=== PATIENT | female | born 1995 | race Caucasian/White ===

== ENCOUNTER → 2019-06-29 13:58 | Outpatient (CLI) | payer MEDICAID, SELFPAY ==
--- NOTE | 2019-06-29 14:01 | US_ITS ---
STUDY: FIRST TRIMESTER OBSTETRICAL ULTRASOUND REASON FOR EXAM: Female, 23 years old viability, dating LMP: 04/03/2019 TECHNIQUE: Transvaginal TECHNICAL QUALITY: Adequate. PRIOR ULTRASOUND: None. FINDINGS: There is visualization of a single gestational sac in a normal intrauterine position. The mean sac diameter (MSD) measures 5.7 cm,.. The gestational sac shape is within normal limits. There is a visualized yolk sac. The yolk sac measures 7.5 mm.. There is visualization of the placenta. Appears posterior There is visualization of a live embryo. The crown-rump length (CRL) measures 4.9 cm, indicating an estimated gestational age (EGA) of 12 weeks, 3 days. There is demonstrated cardiac activity with a heart rate of 01/08/2020 bpm. Early visualization of the extremities are partially visualized. The estimated gestation age (EGA) by LMP is 11 weeks, 3 days. The estimated date of delivery (SARAH) by LMP is 01/15/2020. The estimated gestation age (EGA) by US is 11 weeks, 3 days. The estimated date of delivery (SARAH) by US is 01/15/2020. The uterus measures 12.2 x 9.1 x 7.1 cm. There is no demonstrated uterine fibroid. The cervix is closed. Cervix measures 4 cm. There is a focal hypoechoic fluid collection adjacent to the gestational sac measuring 1.8 x 0.7 x 1.1 cm. The right ovary measures 3.0 x 3.2 x 2.6 cm. There is a right ovarian cyst measuring 1.8 x 2.1 x 1.8 cm. There is no visualized right adnexal mass or complex lesion. The left ovary not visualized. There is no fluid in the cul de sac. US/Init OB < 14Wks US IMPRESSION: Single live intrauterine 11 weeks 3 days by ultrasound. Estimated delivery date 01/15/2020. There is a small subchorionic hemorrhage. Early anatomic detail is visualized on this study but not measured. This is not an anatomic survey. Recommend short-term interval follow-up study for anatomic survey and 1-3 weeks or as clinically appropriate. Electronically Signed: Inge Bragg MD at 22:59 EDT Tel , Service support ,
== END ==
PROVIDERS: Referring Provider Obstetrics & Gynecology; Visit Provider Obstetrics & Gynecology
DX: O36.80X0 Pregnancy with inconclusive fetal viability, not applicable or unspecified (principal); Z3A.11 11 weeks gestation of pregnancy
CPT/HCPCS: 76801

== ENCOUNTER → 2019-07-06 14:20 | Outpatient (CLI) | payer MEDICAID, SELFPAY ==
[2019-07-06 14:17] VITALS: BMI 36.0
[2019-07-06 15:03] LABS: Absolute Lymphocyte Count 2.41 X10^3/uL (0.83-4.51); Absolute Neutrophil Count 6.5 X10^3/uL (2.0-7.7); Basophil# 0.02 X10^3/uL; Basophil% 0.2 % (0-1); Eosinophil# 0.15 X10^3/uL; Eosinophils% 1.6 % (0-5); Hematocrit 35.6 % (37-47); Hemoglobin 12.3 g/dL (12.0-15.0); Lymphocyte # 2.41 X10^3/ul (4.0); Lymphocyte % 25.1 % (19-41); Mean Corp Hgb Conc 34.6 g/dL (32-36); Mean Corpuscular Hgb 29.4 pg (27.0-32.0); Monocyte# 0.54 X10^3/uL; Monocyte% 5.6 % (0-10); NRBC Flagged by Analyzer 0 % (0-5); Neutrophil # 6.47 X10^3/uL (2.7-7.7); Neutrophil % 67.2 % (47-70); Platelet Count 234 K/mm3 (150-450); RBC Distribution Width CV 11.7 % (11.6-14.6); RBC Distribution Width SD 35.8 fl (35.1-43.9); Red Blood Count 4.19 M/mm3 (4.2-5.4); White Blood Count 9.6 K/mm3 (4.4-11.0)
[2019-07-06 15:31] LABS: Glucose Challenge Gest 1H 50g 90 mg/dL (70-140)
[2019-07-06 16:24] LABS: HIV - WCH Non-Reactive (Nonreactive); Rubella IgG 128.5 IU/mL
[2019-07-06 18:04] LABS: Chlamydia Trachomatis by PCR Negative (Negative); Neisserai gonorrhoeae by PCR Negative (Negative); Probe Check PASS; Sample Adequacy Control PASS; Specimen Processing Control PASS
[2019-07-09 12:18] LABS: HPV Reflexed? NOT INDICATED
[2019-07-10 02:41] LABS: Rapid Plasmin Reagin (RPR) NONREACTIVE (NONREACTIVE)
== END ==
PROVIDERS: Nurse Practitioner Women's Health; Referring Provider Obstetrics & Gynecology; Visit Provider Obstetrics & Gynecology
DX: Z34.90 Encounter for supervision of normal pregnancy, unspecified, unspecified trimester (principal)
CPT/HCPCS: 36415; 82950; 85025; 86592; 86703; 86762; 86850; 86900; 86901; 87077; 87086; 87088; 87186; 87491; 87591; 88175; G0145

== ENCOUNTER → 2019-09-01 12:43 | Outpatient (CLI) | payer MEDICAID, SELFPAY ==
[2019-08-03 14:19] VITALS: BMI 36.0
== END ==
PROVIDERS: Referring Provider Nurse Practitioner Women's Health; Visit Provider Nurse Practitioner Women's Health
DX: Z34.80 Encounter for supervision of other normal pregnancy, unspecified trimester (principal)
CPT/HCPCS: 87077; 87086; 87088; 87186

== ENCOUNTER → 2019-10-02 11:33 | Outpatient (CLI) | payer MEDICAID, SELFPAY ==
[2019-10-02 10:53] VITALS: BMI 36.0
[2019-10-02 12:31] LABS: Absolute Lymphocyte Count 1.73 X10^3/uL (0.83-4.51); Absolute Neutrophil Count 7.1 X10^3/uL (2.0-7.7); Basophil# 0.02 X10^3/uL; Basophil% 0.2 % (0-1); Eosinophil# 0.14 X10^3/uL; Eosinophils% 1.5 % (0-5); Hemoglobin 11.5 g/dL (12.0-15.0); Lymphocyte # 1.73 X10^3/ul (4.0); Lymphocyte % 18.4 % (19-41); Mean Corp Hgb Conc 33.8 g/dL (32-36); Mean Corpuscular Hgb 29.5 pg (27.0-32.0); Mean Corpuscular Volume 87.2 fL (81-99); Mean Platelet Vol. 9.8 fl (6.2-12.0); Monocyte# 0.41 X10^3/uL; Monocyte% 4.4 % (0-10); NRBC Flagged by Analyzer 0 % (0-5); Neutrophil # 7.05 X10^3/uL (2.7-7.7); Neutrophil % 74.9 % (47-70); Platelet Count 267 K/mm3 (150-450); RBC Distribution Width CV 13.1 % (11.6-14.6); RBC Distribution Width SD 40.6 fl (35.1-43.9); White Blood Count 9.4 K/mm3 (4.4-11.0)
[2019-10-02 12:52] LABS: Glucose Challenge Gest 1H 50g 85 mg/dL (70-140)
[2019-10-02 13:17] LABS: Hepatitis B Surface Antigen Non-Reactive (Nonreactive)
== END ==
PROVIDERS: Referring Provider Obstetrics & Gynecology; Visit Provider Obstetrics & Gynecology
DX: O09.299 Supervision of pregnancy with other poor reproductive or obstetric history, unspecified trimester (principal); O26.899 Other specified pregnancy related conditions, unspecified trimester; O23.40 Unspecified infection of urinary tract in pregnancy, unspecified trimester; B95.1 Streptococcus, group B, as the cause of diseases classified elsewhere; Z67.91 Unspecified blood type, Rh negative; Z3A.26 26 weeks gestation of pregnancy
CPT/HCPCS: 36415; 82950; 85025; 87340

== ENCOUNTER → 2019-10-15 16:29 | Outpatient (CLI) | payer MEDICAID, SELFPAY ==
[2019-10-15 16:06] VITALS: BMI 36.0
== END ==
PROVIDERS: Referring Provider Obstetrics & Gynecology; Visit Provider Obstetrics & Gynecology
DX: O26.899 Other specified pregnancy related conditions, unspecified trimester (principal); Z67.91 Unspecified blood type, Rh negative; Z3A.00 Weeks of gestation of pregnancy not specified
CPT/HCPCS: 36415; 86850; 86900; 86901

== ENCOUNTER 2019-12-08 15:45 | Outpatient (CLI) | payer MEDICAID, SELFPAY ==
[2019-11-30 10:55] VITALS: BMI 36.0
[2019-12-08 15:58] VITALS: BMI 36.9
[2019-12-08 16:16] VITALS: BP 90/53; PULSE 66; TEMP 97.9
[2019-12-08 16:26] VITALS: BP 96/57; PULSE 65
[2019-12-08 16:48] LABS: Red Blood Cells-Urine 0 SEEN /hpf (0-5); White Blood Cells 0 SEEN /hpf (0-5)
[2019-12-08 17:00] LABS: Color, Urine Yellow (Yellow); Glucose, Dipstick Normal (Normal); Ketone-Dipstick 50 mg/dl (Negative); Leukocyte Esterase-Dipstick 25 /ul (Negative); Nitrite-Dipstick Negative (Negative); Occult Blood-Urine Negative /ul (Negative); Protein-Dipstick Negative (Negative); Specific Gravity, Urine 1.015 (1.002-1.030); Urine Bilirubin Dipstick Negative (Negative); Urine Clarity Clear (Clear); Urine Urobilinogen 4 mg/dl (Normal)
[2019-12-08] MEDS: Acetaminophen 500 MG Tablet 1000 MG PO (17:08)
[2019-12-08 17:09] LABS: Bacteria 1+ /hpf (None Seen); Mucous, Urine 1+ /hpf (<or=2+); Squamous Epithelial Cells - UA 5-10 SEEN /hpf (5-10)
[2019-12-08 17:39] VITALS: BP 93/54; PULSE 71
--- NOTE | 2019-12-09 14:25 | OB.TRI.PN ---
Progress Notes Date of Service: 12/09/19 Progress Note: fht 140 moderate variability reactive no decels cat I tracing toco no regular ctx- a/p: false labor reactive nst fu as scheudled Laboratory Studies: Laboratory Tests 12/08/19 Range/Units 16:35 Urine Color Yellow (Yellow) Urine Clarity Clear (Clear) Urine pH 7.0 (5.0 - 8.0) Ur Specific [place] 1.015 (1.002-1.030) Urine Protein Negative (Negative) mg/dl Urine Glucose (UA) Normal (Normal) mg/dl Urine Ketones 50 H (Negative) mg/dl Urine Occult Blood Negative (Negative) /ul Urine Nitrite Negative (Negative) Urine Bilirubin Negative (Negative) mg/dL Urine Urobilinogen 4 H (Normal) mg/dl Ur Leukocyte Esterase 25 H (Negative) /ul Urine RBC 0 SEEN (0-5) /hpf Urine WBC 0 SEEN (0-5) /hpf Ur Squamous Epith Cells 5-10 SEEN (5-10) /hpf Urine Bacteria 1+ (None Seen) /hpf Urine Mucus 1+ (<or=2+) /hpf Multi Select Codes - Urinary/Genital Urinary/Genital CPT Codes: 16611-87 non-stress test Interp
== END 2019-12-08 17:45 | disposition home or self-care (01) ==
LOC: WPOUT 15:51 → OBT 15:52
PROVIDERS: Referring Provider Obstetrics & Gynecology; Visit Provider Obstetrics & Gynecology
DX: O47.9 False labor, unspecified (principal); Z3A.00 Weeks of gestation of pregnancy not specified
CPT/HCPCS: 59025; 59050; 81001; 87086; 87088; 99218; G0378

== ENCOUNTER 2020-01-14 06:42 | Inpatient (IN) | payer MEDICAID, SELFPAY ==
[2020-01-11 10:32] VITALS: BMI 36.9
[2020-01-14] VITALS (69 sets, daily range): BP systolic 80–113; BP diastolic 39–69; PULSE 47–96; TEMP 36.2–37.2; O2SAT 91–100; BMI 38.6
--- NOTE | 2020-01-14 00:34 | PCM.HPOB.BLA ---
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 echo normal. (3) GBS (group B streptococcus) UTI complicating Status: Acute Qualifiers: Comment: 07/09 tx amoxil and in labor (4) Status: Acute Qualifiers: Comment: SS-negative and NT. Anatomy US normal. (5) Rh negative state in antepartum period Status: Acute Comment: rhogam 28 wk, pp and with any bleeding (6) Sterilization Status: Acute Comment: title 19 signed 10/15/19 (7) Supervision of other normal Status: Acute Comment: PRR Grav 01/07 SARAH 01/08/20 PC Jacques Vasques Braxton. 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 Lakesha Alvarez MD) Smoking Status: Never smoker alcohol intake: former substance use type: does not use caffeine: Yes what type of physical activity do you participate in: none seatbelt use: always do you feel safe at home: Yes additional social history: [employer] Pregancy History 4 Elective abortions Hx Para 3 Spontaneous abortions Hx # Term Pregnancies Ectopic pregnancies Hx # Pregnancies Multiple births # of living children Past Pregnancies Del. Date Name GA/Weeks Outcome Route Bth Weight Gen Labor Lgth Anesthesia Del Locatn Provider FOB 10/15/11 Layo 41 live - full term 8lbs 9oz epidural [facility] Dr. Apolinar Arguelles 07/21/14 Jacques 39 live - full term 7lbs 6oz Male epidural [facility] Dr. Kael De La Paz 10/04/17 Shekhar 41 live - full term 7lbs 6oz Male epidural [facility] Dr. Apolinar Raymond Delivery Date: 10/15/11 On 07/06/19 @ 13:39 Audrey Valentin No issues during or delivery Delivery Date: 07/21/14 On 07/06/19 @ 13:40 Audrey Valentin No issues during or delivery. 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 Delivery Date: 10/04/17 On 07/06/19 @ 13:42 Audrey Valentin No issues during or delivery. HPI 40 WK OB: Details: LETY THOMAS is a 24 year old at 40 weeks 6 days presents for induction of labor secondary to postdates. She denies any vaginal bleeding or loss of fluid admits good movement. OB Visit SARAH Calculator Estimated Delivery Date Method Current WG Current Estimate 01/08/20 Ultrasound #1 40w 3d Other Estimates 01/08/20 LMP (Certain) 40w 3d Expected Delivery Route/Plan Labor Preferences- labor support person: Derrek pain management options preferred: unsure cut cord/dad catch: yes : yes PP control planned: PPTL discussed possible routes of delivery and associated risks: special requests: Specific Issue/Plans flu vaccine: given tdap vaccine: given rhogam: given LARC form signed: declined movement and labor precautions reviewed. Problem list reviewed and updated with the most current plan of care details and appropriate orders placed. Relevant counseling for the gestational age provided. Continue routine care and follow up unless otherwise noted in visit notes/problem list details Initial Weight: Not Recorded Date EGA Weight BP Urine Prot Glucose FHR FuHt Pres Dilation Effaced St Visit Note 07/06/19 13w 3d 208 lb 4 oz 166 Brief US to confirm live active IUP 08/03/19 17w 3d 206 lb 112/64 Negative Negative 150 .lno vb 09/01/19 21w 4d 216 lb 2 oz 112/72 154 Good FM. No VB, LOF. Will assist to scheduled echo. 10/02/19 26w 0d 216 lb 106/72 145 26 SM- no vb lof good fm no regular ctx SM- no vb lof good fm no regular ctx cbc gct today will get rhogam next visit 10/15/19 27w 6d 215 lb 92/62 Negative Negative 145 28 outpatient; SM inpatient title 19 11/02/19 30w 3d 216 lb 4 oz 111/72 Negative Negative 145 31 SM- no vb lof good fm no regular ctx 11/16/19 32w 3d 224 lb 2 oz 122/66 Negative Negative 140 32 SM- no vb lof good fm no regular ctx 11/30/19 34w 3d 224 lb 100/64 Negative Negative 140 34 SM- no vb lof good fm no regular ctx 12/14/19 36w 3d 227 lb 114/80 140 36 SM- no vb lof good fm no regular ctx 12/23/19 37w 5d 228 lb 4 oz 108/66 Negative Negative 140 37 Cephalic 2.5 50 -3 SM- no vb lof good fm no regular ctx 12/28/19 38w 3d 228 lb 96/70 Negative Negative 140 38 2.5 50 -3 SM- no vb lof good fm no regular ctx 01/04/20 39w 3d 230 lb 4 oz 100/70 Negative Negative 155 39 Cephalic SM- no vb lof good fm no regular ctx 01/11/20 40w 3d 230 lb 102/64 150 40 Cephalic SM- no vb lof good fm o regular ctx Notes Visit Date: 01/11/20 ??No visit notes to display Visit Date: 01/04/20 ??No visit notes to display Visit Date: 12/28/19 ??No visit notes to display Visit Date: 12/23/19 ??No visit notes to display Visit Date: 12/14/19 ??No visit notes to display Visit Date: 11/30/19 ??No visit notes to display Visit Date: 11/16/19 ??No visit notes to display Visit Date: 11/02/19 ??No visit notes to display Visit Date: 10/15/19 ??No visit notes to display Visit Date: 10/02/19 ??No visit notes to display Visit Date: 09/01/19 ??Good FM. No VB, LOF. Will assist to scheduled echo. ??NERI Mcgill on 09/01/19 Visit Date: 08/03/19 ??.lno vb ??Lakesha Alvarez MD on 08/03/19 Visit Date: 07/06/19 ??Brief US to confirm live active IUP ??NERI Mcgill on 07/06/19 ACOG First Trimester First Trimester: Desire for , Alcohol, Tobacco Cessation, Illicit/Recreational Drug/Substance Use, Intimate Partner Violence, Barriers to care, Unstable Housing, Communication Barriers, Environmental/Work Hazards, Anticipated Course of Care, Toxoplasmosis Precations, Use of Any medications, Sexual activity, Exercise, Dental Care, Sauna/Hot tub use, Seat Belt use, Childbirth classes/Hospital facilities, , Travel, Indications for US and Screening for Aneuploidy Second Trimester Second Trimester: Signs and Symptoms of Labor, Selecting a care provider, Reproductive Life Planning, Care Planning, Tobacco Cessation, Depression/Anxiety and Intimate Partner Violence Third Trimester Third Trimester: Pain Management Plans, Labor support person(s), Immediate Larc, Movement Monitoring and Infant Feeding Yes ; discussed Trial of Labor after Counseling or discussed Circumcision preference Diagnostics Diagnostics Diagnostics Blood Type B NEGATIVE 10/15/19 Antibody Screen NEGATIVE 10/15/19 Glucose 1 Hr 50 gm 85 mg/dL (70-140) 10/02/19 Hgb 11.5 g/dL (12.0-15.0) L 10/02/19 Hct 34.0 % (37-47) L 10/02/19 Details: HIV: Urine Culture: Sequential Screen: NIPT Screen: ROS Const Reports system reviewed and no additional complaints, except as docu Card Reports system reviewed and no additional complaints, except as docu Resp Reports system reviewed and no additional complaints, except as docu GI Reports system reviewed and no additional complaints, except as docu, Reports nausea Reports system reviewed and no additional complaints, except as docu Musc Reports system reviewed and no additional complaints, except as docu Exam Const General: cooperative, healthy appearing, comfortable, anxious HENMT Head: normal to inspection Nose: external nose normal Face and sinus: normal facial exam Neck Neck: normal visual inspection, full ROM, no lymphadenopathy Thyroid: thyroid normal Chest Chest palpation & inspection: normal inspection of the chest Resp Effort & Inspection: normal respiratory effort GI Inspection: normal to inspection Palpation: soft, other (gravid uterus) Other: infant vertex and appropriate size for gestational age Other: Cervical Exam: Extrem General: pedal edema Assessment & Plan Problems 1. Sterilization Z30.2 2. Group B Streptococcus urinary tract infection affecting in first trimester O23.41 3. Rh negative state in antepartum period O26.899; Z67.91 4. 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 40 weeks gestation of Z3A.40 6. Supervision of other normal Z34.80 Patient presents IOL, plan management for , pitocin/AROM when able. Pain management: Plans epidural. GBS negative. Management of any complications: None I have reviewed the [facility] and made any clinically relevant updates. 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
[2020-01-14 08:01] LABS: Absolute Neutrophil Count 5.8 X10^3/uL (2.0-7.7); Basophil# 0.02 X10^3/uL; Basophil% 0.2 % (0-1); Eosinophil# 0.06 X10^3/uL; Eosinophils% 0.7 % (0-5); Hematocrit 32.8 % (37-47); Hemoglobin 10.7 g/dL (12.0-15.0); Lymphocyte % 22.8 % (19-41); Mean Corp Hgb Conc 32.6 g/dL (32-36); Mean Corpuscular Hgb 27.4 pg (27.0-32.0); Mean Corpuscular Volume 84.1 fL (81-99); Mean Platelet Vol. 11.2 fl (6.2-12.0); NRBC Flagged by Analyzer 0 % (0-5); Neutrophil # 5.82 X10^3/uL (2.7-7.7); Neutrophil % 69.7 % (47-70); Platelet Count 213 K/mm3 (150-450); RBC Distribution Width CV 13.5 % (11.6-14.6); RBC Distribution Width SD 40.6 fl (35.1-43.9); White Blood Count 8.4 K/mm3 (4.4-11.0)
[2020-01-14] MEDS: Lactated Ringers 1,000 ML 50 ML IV (08:20)
[2020-01-14] MEDS: Oxytocin 30 units/NS 500 ml 30 UNITS/500 ML IV.SOLN IV (08:30)
[2020-01-14] MEDS: Lactated Ringers 500 ML 999 ML IV ×3 (12:48→14:36)
[2020-01-14] MEDS: fentaNYL-bupivacaine (epidural) 100 ML BAG EPIDURAL (14:13)
[2020-01-14] MEDS: ePHEDrine Sulfate 50 MG/ML Ampul 10 MG IM (14:15)
--- NOTE | 2020-01-14 17:18 | OP.PCM_ITS ---
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 echo normal. (3) GBS (group B streptococcus) UTI complicating Status: Acute Qualifiers: Comment: 07/09 tx amoxil and in labor (4) Status: Acute Qualifiers: Comment: SS-negative and NT. Anatomy US normal. (5) Rh negative state in antepartum period Status: Acute Comment: rhogam 28 wk, pp and with any bleeding (6) Sterilization Status: Acute Comment: title 19 signed 10/15/19 (7) Supervision of other normal Status: Acute Comment: PRR Grav 01/07 SARAH 01/08/20 Jacques Rosa Braxton. Spouse Derrek Vaginal Delivery Maternal Presentation: Medically Indicated Induction iol 40w6d Method of Induction: Pitocin Amniotic Membrane Rupture Type: Artificial Amniotic Fluid Description: Clear Final SARAH: 01/08/20 Gestational age: 41 Weeks and 1 Days Date of Procedure: 01/14/20 Pre-Operative Diagnosis: iol Post-Operative Diagnosis: same Surgery/ Procedure Performed: Spontaneous Vaginal Delivery Type of Anesthesia: Epidural Description of Procedure: Patient began pushing and delivered the head in the BRIANNA presentation. The head was delivered atraumatically and a tight nuchal cord was noted and after should delivery was cut on the perineum without complications. The posterior shoulders delivered without complication followed by the rest of the infant and the was placed on the maternal abdomen. Delayed cord clamping was employed for approximately 60 seconds. Cord was clamped and cut and gentle traction was applied to the cord and the placenta delivered spontaneously immediately following it was noted to be intact with three-vessel cord. The perineum and vagina were inspected and noted to have no laceration. EBL was 100 cc. Patient and tolerated delivery well. Presentation: BRIANNA Placental Delivery Description: Spontaneous Placenta Disposition: [facility] Cord Vessel Description: 3 Vessels Estimated Blood Loss: 100 A gender: Female Episiotomy Description: None Laceration: None Medications given after delivery: IV Pitocin Complications: None Multi Select Codes - Urinary/Genital Urinary/Genital CPT Codes: 41473 Vaginal Delivery+ PP Care([facility])
[2020-01-14] MEDS: Oxytocin 30 units/NS 500 ml 30 UNITS/500 ML IV.SOLN 334 UNITS IV (17:39)
[2020-01-14] MEDS: 0.9% Saline Lock 10 ML Syringe IV (20:13)
[2020-01-15] VITALS (14 sets, daily range): BP systolic 77–107; BP diastolic 35–70; PULSE 45–72; RESP 14–20; TEMP 36–36.9; O2SAT 93–97
[2020-01-15] MEDS: Naproxen 250 MG Tablet 500 MG PO ×2 (02:50→11:04)
--- NOTE | 2020-01-15 07:58 | PN.OBGYN_ITS ---
Subjective: Doing well, no complaints.Pain controlled. Denies CP, SOB, N,V. Ambulating well, tolerating po. Lochia moderate, going well. - Physical Exam Vitals/I&O's: Vital Signs Temp Pulse Resp BP Pulse Ox 98.5 F 58 L 16 101/55 L 99 01/15/20 04:13 01/15/20 04:14 01/15/20 04:13 01/15/20 04:14 01/14/20 19:48 Oxygen Delivery Method Room Air Weight: 232 lb Body Mass Index (BMI) 38.6 Intake and Output for Last 24 Hours 01/13/20 01/14/20 01/15/20 23:59 23:59 23:59 Intake Total 3170.21 / 3170.21 Output Total 900 / 900 600 / 600 Balance 2270.21 / 2270.21 -600 / -600 General: Alert, Oriented x3 Abdomen: Soft, Non Tender, Non-Distended, - - FF below U Laboratory Results 01/14/20 07:40: WBC 8.4, RBC 3.90 L, Hgb 10.7 L, Hct 32.8 L, MCV 84.1, MCH 27.4, MCHC 32.6, RDW Std Deviation 40.6, RDW Coeff of Melyssa 13.5, Plt Count 213, MPV 11.2, Immature Gran % (Auto) 0.600, Neut % (Auto) 69.7, Lymph % (Auto) 22.8, Mathews % (Auto) 6.0, Eos % (Auto) 0.7, Baso % (Auto) 0.2, Absolute Neuts (auto) 5.8, Absolute Lymphs (auto) 1.90, Nucleated RBC % 0 01/14/20 07:40: Blood Type B NEGATIVE, Antibody Screen NEGATIVE Current Medications Acetaminophen (Tylenol) 1,000 mg PO Q8H PRN PRN PRN Reason: Pain Score 1-3/10 Bisacodyl (Dulcolax) 10 mg RECTAL UD PRN PRN Reason: If no BM Dibucaine (Dibucaine) 1 applic TOPICAL TID PRN PRN; Protocol PRN Reason: Discomfort Hydrocortisone (Hytone) 1 applic TOPICAL TID PRN PRN; Protocol PRN Reason: Discomfort Methylergonovine Maleate (Methergine) 0.2 mg IM X1 PRN PRN Reason: Excess bleeding/uterine atony Naproxen (Naprosyn) 500 mg PO Q8H PRN PRN PRN Reason: Pain Score 1-3/10 Last Admin: 01/15/20 02:50 Dose: 500 mg Documented by: Ondansetron HCl (Zofran) 4 mg IV Q4H PRN PRN PRN Reason: Nausea Oxycodone HCl (Oxyir) 5 - 10 mg PO Q4H PRN PRN PRN Reason: Pain Score 4-10/10 Multivit/Folic Acid/Iron (Prenatabs Fa) 1 tablet PO DAILY@1200 ZHANNA Senna/Docusate Sodium (Senokot-S, Leona-Colace) 1 - 2 tablet PO DAILY PRN PRN PRN Reason: Constipation Simethicone (Mylicon) 80 mg PO PCHS PRN PRN Reason: Indigestion/Stomach pain Sodium Chloride () 5 - 15 ml IV UD PRN PRN Reason: SALINE FLUSH Last Admin: 01/14/20 20:13 Dose: 10 ml Documented by: Medical Necessity - Tobacco Use Smoking Status: Never smoker Assessment/Plan All Active Problems (Last Reviewed 01/11/20 @ 10:31 by Krystal Hurst) Post-dates (Acute) Sterilization (Acute) GBS (group B streptococcus) UTI complicating (Acute) Rh negative state in antepartum period (Acute) 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 routine post delivery care 2. breast feeding- support given 3. rh negative 4. rubella immune 5. home today
--- NOTE | 2020-01-15 07:59 | DCINST_ITS ---
Additional Instructions: If you experience any of the following, contact your healthcare provider. * Bleeding that soaks a pad every hour for 2 hours * Fever 100.4 or higher * Unrelieved incision or abdominal pain * Swelling, redness, discharge or bleeding from your incision or episiotomy site * Your incision begins to separate * Problems urinating (including inability to urinate or burning while urinating). * Visual changes * Severe headache * Flu-like symptoms * Pain or redness in one of both of your breasts * Pain, warmth, tenderness or swelling in your legs, especially the calf area * Frequent nausea and vomiting * Symptoms of depression or anxiety If you experience any of the following, call 911 or go to the nearest Emergency Room. * Chest pain * Problems breathing * Seizure activity * Partial or complete paralysis of a body part, slurred speech, weakness or drooping of the face, or a sudden inability to walk or hold your balance Allergies/Adverse Reactions: Allergies No Known Allergies Allergy (Verified 01/11/20 10:31) Medications to take at Discharge vitamin#30 30 mg iron-10 mg iron-folic acid 1 mg-omg3 capsule 1 cap PO DAILY 12/28/19 Primary Care Physician: Care Physician,No Primary [Primary Care Provider] - Test Results: Test results from this visit will be discussed in further detail at your follow- up appointment, if applicable.
--- NOTE | 2020-01-15 07:59 | PCM.DCVAG ---
Additional Instructions: If you experience any of the following, contact your healthcare provider. Bleeding that soaks a pad every hour for 2 hours Fever 100.4 or higher Unrelieved incision or abdominal pain Swelling, redness, discharge or bleeding from your incision or episiotomy site Your incision begins to separate Problems urinating (including inability to urinate or burning while urinating). Visual changes Severe headache Flu-like symptoms Pain or redness in one of both of your breasts Pain, warmth, tenderness or swelling in your legs, especially the calf area Frequent nausea and vomiting Symptoms of depression or anxiety If you experience any of the following, call 911 or go to the nearest Emergency Room. Chest pain Problems breathing Seizure activity Partial or complete paralysis of a body part, slurred speech, weakness or drooping of the face, or a sudden inability to walk or hold your balance Allergies/Adverse Reactions: Allergies No Known Allergies Allergy (Verified 01/11/20 10:31) Medications to take at Discharge vitamin#30 30 mg iron-10 mg iron-folic acid 1 mg-omg3 capsule 1 cap PO DAILY 12/28/19 Primary Care Physician: Care Physician,No Primary [Primary Care Provider] - Test Results: Test results from this visit will be discussed in further detail at your follow-up appointment, if applicable.
[2020-01-15] MEDS: Prenatal Vits Tablet 1 TABLET PO (11:04)
[2020-01-15] MEDS: Acetaminophen 500 MG Tablet 1000 MG PO (16:33)
== END 2020-01-15 21:15 | disposition home or self-care (01) | DRG 560 ==
PROVIDERS: Admitting Provider Obstetrics & Gynecology; Referring Provider Obstetrics & Gynecology; Visit Provider Obstetrics & Gynecology
DX: O48.0 Post-term pregnancy (principal); O69.1XX0 Labor and delivery complicated by cord around neck, with compression, not applicable or unspecified; Z87.440 Personal history of urinary (tract) infections; Z3A.41 41 weeks gestation of pregnancy; Z37.0 Single live birth
CPT/HCPCS: 85025; 86850; 86900; 86901; 99218; J7120; A4216; G0378

== ENCOUNTER 2020-02-16 08:49 | Day surgery (SDC) | payer MEDICAID, SELFPAY ==
[2020-01-14 07:46] VITALS: BMI 38.6
[2020-02-16 09:10] LABS: Internal QC Validated? YES +Cl - CLEAR BKGD; Pregnancy, Urine Negative Negative
--- NOTE | 2020-02-16 09:13 | HP.PCM_ITS ---
Problem List (1) Sterilization Status: Acute Comment: title 19 signed 10/15/19 History of Present Illness Date of Admission: 02/16/20 The patient is a 24 year old F presents for laparosocpic bilateral salpingectomy for sterilization. Past Medical History Medical History: Medical History (Last Reviewed 01/11/20 @ 10:31 by Krystal Hurst) Left elbow fracture S42.402A Allergies No Known Allergies Allergy (Verified 02/16/20 09:05) Home Medications: Ambulatory Orders Medication Instructions Recorded vitamin#30 30 mg iron-10 1 cap PO DAILY 12/28/19 mg iron-folic acid 1 mg-omg3 capsule Surgical History: Surgical History (Last Reviewed 01/11/20 @ 10:31 by Krystal Hurst) Hx of elbow surgery Z98.890 LEFT Smoking Status: Never smoker Review of Systems Constitutional: Denies: Fever, Malaise Eyes: Denies: Blurred vision, Vision Change HEENT: Denies: Head Aches, Visual Changes Cardiovascular: Denies: Chest Pain, Palpitations Respiratory: Denies: Cough, Shortness of Breath, Wheezing Gastrointestinal: Denies: Abdominal Pain, Diarrhea, Nausea, Vomiting Genitourinary: Denies: Dysuria, Hematuria Musculoskeletal: Denies: Joint Pain, Muscle pain Skin: Denies: Lesions, Rash Neurological: Denies: Blurred vision, Focal weakness, Headaches Psychiatric: Denies: Anxiety, Depression Endocrine: Denies: Heat/ Cold Intolerance Hematologic/ Lymphatic: Denies: Easy Bruising, Easy Bleeding VTE Information - Inpt Only VTE Present on Admission: No - Physical Exam Vitals/I&O's: Body Mass Index (BMI) 38.6 General: Alert, Oriented x3 HEENT: Atraumatic, Normocephalic Oral: Moist Mucosa Neck: Supple Lungs: Clear to auscultation, Normal air movement Cardiovascular: Regular rate, Regular Rhythm Abdomen: Soft, Non Tender, Non-Distended Laboratory Results 02/16/20 09:05: Urine Test Negative Assessment/Plan All Active Problems (Last Reviewed 01/11/20 @ 10:31 by Krystal Hurst) Post-dates (Acute) Sterilization (Acute) GBS (group B streptococcus) UTI complicating (Acute) Rh negative state in antepartum period (Acute) 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 After discussing the patient's diagnosis and treatment plan options, patient wishes to proceed with surgical management. I have discussed with the patient the risks, benefits, and alternatives of the procedure which include but are not limited to risks of anesthesia, bleeding, infection, possible damage to bowel, bladder, or surrounding vasculature which could lead to additional surgery to evaluate any complications. Patient agrees to procedure and wishes to proceed. Essential Procedure Criteria Criteria Note: On 12/22/2019 the [facility] ([facility]) Public Order signed by [facility] Director Kandi Urbina M.D., regarding the Management of Non- Essential Surgeries and Procedures for the purpose of preserving Personal Protective Equipment (PPE) and critical hospital capacity and resources within [place] went into effect as of 12/23/2019 at 5:00PM. According to the [facility] Public Order: This action will remain in full force and effect until the State of Emergency declared by the Governor no longer exists or the Director of the [facility] rescinds or modifies this Order.. This [facility] order stated all non-essential or elective surgeries and procedures that utilize PPE should be delayed unless there is undue risk to the current or future health of a patient. After reviewing the aforementioned [facility] Public Order and the patients clinical case, I have determined that the scheduled procedure meets the criteria to go forward.
[2020-02-16 09:20] VITALS: BP 112/66; PULSE 66; RESP 15; TEMP 36.7; O2SAT 100; BMI 34.8
[2020-02-16 09:25] LABS: Hematocrit 40.9 % (37-47); Hemoglobin 13.2 g/dL (12.0-15.0); Mean Corp Hgb Conc 32.3 g/dL (32-36); Mean Corpuscular Hgb 27.2 pg (27.0-32.0); Mean Corpuscular Volume 84.3 fL (81-99); Mean Platelet Vol. 10.3 fl (6.2-12.0); Platelet Count 242 K/mm3 (150-450); RBC Distribution Width CV 13.1 % (11.6-14.6); RBC Distribution Width SD 39.7 fl (35.1-43.9); Red Blood Count 4.85 M/mm3 (4.2-5.4); White Blood Count 7.4 K/mm3 (4.4-11.0)
[2020-02-16] MEDS: Lactated Ringers 1,000 ML 100 ML IV (09:38)
--- NOTE | 2020-02-16 11:10 | OP.PCM_ITS ---
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 Bladder was drained of clear urine and SCDs were on preoperatively. Uterus was sounded and a uterine manipulator was placed after dilating. Attention was then paid to the abdominal portion of the procedure and the umbilicus was elevated with towel clamps and injected with Marcaine and after a 5 mm incision was made and the Veress needle was entered into the abdomen confirmed to be intra-abdominal with a low opening pressure of less than 5 mmHg. Abdomen was insufflated with CO2 gas and a 5 mm optical trocar was placed under direct visualization. A left lower quadrant 5 mm port and a 5 mm port suprapubically were placed under direct visualization. Uterus was well visualized and bilateral fallopian tubes identified and bilateral tubes were elevated and transecting across the mesosalpinx and the attachment to the uterine corpus bilaterally the tubes were removed without complication. Excellent hemostasis was noted. Fallopian tubes were removed through the lower port sites without complication. Liver and upper abdomen were visualized notably within normal limits and no other gross abnormalities were seen in the abdomen. All instruments removed from the abdomen after gas was desufflated. Port sites were closed with 3-0 Monocryl Steri's and op sites were applied. All instruments removed from the vagina and patient was awoken and taken recovery in stable condition. Grafts/Implants Used: none - Complications none - Admit VTE Documentation VTE Present on Admission: No VTE Mechan Device Prophylaxis: SCD's Multi Select Codes - Urinary/Genital Urinary/Genital CPT Codes: 82441 Laproscopic BS/O
--- NOTE | 2020-02-16 11:14 | DCINST_ITS ---
Discharge Diet: No Restrictions - Increase fluid intake for the next 48 hours. Discharge Activity: Return to Normal Activity, May Drive - when you are no longer taking narcotic pain medications., May Shower, May Take a Tub Bath - in 7 days Additional Activity Instructions:: Ambulate often the next week after surgery. Nothing in the vagina for 5 days. Call your doctor if your incision/area has: Continuous Slow Oozing, Sudden Increased Bleeding, Increased Pain/ Swelling, Increased Redness, Foul Smelling Discharge Call your doctor if you observe: Fever of 101 or Higher Allergies/Adverse Reactions: Allergies No Known Allergies Allergy (Verified 02/16/20 09:05) Medications to take at Discharge vitamin#30 30 mg iron-10 mg iron-folic acid 1 mg-omg3 capsule 1 cap PO DAILY 12/28/19 Naproxen [Naprosyn] 250 - 500 mg PO Q8H PRN PRN #30 tab 02/16/20 Oxycodone HCl/Acetaminophen [Percocet 5-325] 1 - 2 tablet PO Q6H PRN PRN 7 Days #15 tablet 02/16/20 The following prescriptions were given: Naproxen [Naprosyn] 250 - 500 mg PO Q8H PRN PRN #30 tab PRN Reason: MILD PAIN Transmission Status: Pending to [facility] Oxycodone HCl/Acetaminophen [Percocet 5-325] 1 - 2 tablet PO Q6H PRN PRN 7 Days #15 tablet PRN Reason: Pain Transmission Status: Sent to [facility] Primary Care Physician: Mariola Wilson DO [Primary Care Provider] - Test Results: Test results from this visit will be discussed in further detail at your follow- up appointment, if applicable. Please Follow Up With: Lakesha Alvarez MD - [phone]
[2020-02-16] MEDS: Bupivacaine 0.25% 30 ML Vial (11:39)
[2020-02-16 12:00] VITALS: BP 112/66; BP 88/39; PULSE 52; RESP 14; TEMP 36.3; O2SAT 100
[2020-02-16 12:16] VITALS: BP 112/66; BP 91/56; PULSE 55; RESP 14; O2SAT 100
--- NOTE | 2020-02-16 12:20 | FALS_PTH ---
PATIENT: LETY LOYA LOC: [facility] [place][id number] AGE/SX: 24/F ROOM: RE02/16/[address]: Dr. Lakesha Alvarez MD : 1995 BED: DIS: 02/16/2020 SPEC #: [id number] RECD: 02/16/20 13:45 STATUS: CYNTHIA REJohn #: [id number] JEAN MARIE: 02/16/20 12:[address]: Lakesha Alvarez DEPT: SURGICAL PATHOLOGY RECD BY: Socorro Beebe ENTERED: 02/17/20 09:19 SP TYPE: FALL TUBES OTHR DR: Dr. Mariola Wilson, DO Tissues: Fallopian tube Procedures: Surgery Specimen Level II HEADER OPERATION: Laparoscopic salpingectomy PRE-OP DIAGNOSIS: Sterilization TISSUE SUBMITTED: Bilateral fallopian tubes MICROSCOPIC DIAGNOSIS Right and left fallopian tubes, bilateral salpingectomies: Two complete cross-sections of fallopian tubes with no pathologic change. AM:severino 02/18/20 MICROSCOPIC DESCRIPTION Slides are reviewed. GROSS DESCRIPTION Received in fixative is one container labeled with the patient's name and designated bilateral fallopian tubes. The specimen consists of two fallopian tubes with an average length of 7.5 cm and has an average diameter of 0.6 cm. Both fallopian tubes have normal fimbriated ends. No mass lesions are identified. [employer] Operator sections are submitted in two cassettes as follows: 1 - one fallopian tube, 2??the other fallopian tube. / AM:severino 02/17/20 TC:4 CPT: 72165 x2
[2020-02-16 12:30] VITALS: BP 106/73; BP 112/66; PULSE 54; RESP 14; O2SAT 100
[2020-02-16 12:44] VITALS: BP 111/79; BP 112/66; PULSE 56; RESP 14; TEMP 36.3; O2SAT 100
[2020-02-16 13:38] VITALS: BP 110/74; BP 112/66; PULSE 62; RESP 16; TEMP 36.3; O2SAT 100
== END 2020-02-16 14:15 | disposition home or self-care (01) ==
LOC: SDC 08:50 → AC 08:51
PROVIDERS: PCP Family Medicine; Referring Provider Obstetrics & Gynecology; Visit Provider Obstetrics & Gynecology
PROC: (CPT 58661; principal; 2020-02-16 12:05)
DX: Z30.2 Encounter for sterilization (principal)
CPT/HCPCS: 00840; 58661; 81025; 85027; 86850; 86900; 86901; 88302; J7120; J2405

== ENCOUNTER → 2022-04-16 | Outpatient (CLI) | payer MEDICAID, SELFPAY ==
[2022-04-18 16:14] LABS: HPV Reflexed? NOT INDICATED
== END | disposition home or self-care (01) ==
LOC: LABSPEC 11:28
PROVIDERS: PCP Family Medicine; Referring Provider Nurse Practitioner Women's Health; Visit Provider Nurse Practitioner Women's Health
DX: Z12.4 Encounter for screening for malignant neoplasm of cervix (principal)
CPT/HCPCS: 88175; G0145

== ENCOUNTER → 2022-05-30 | Outpatient (CLI) | payer MEDICAID, SELFPAY ==
--- NOTE | 2022-05-30 18:46 | US_ITS ---
STUDY: ULTRASOUND OF THE FEMALE PELVIS - COMPLETE REASON FOR EXAM: Female, 26 years old. Abnormal uterine bleeding. LMP: Unknown. TECHNIQUE: Transabdominal and Transvaginal TECHNICAL QUALITY: Adequate. COMPARISON: None. FINDINGS: The uterus is anteverted and is in a midline position. The uterus measures 8.6 x 6.4 x 4.1 cm. There is a Nabothian cyst of the cervix. The endometrium measures 5 mm in thickness, and is hyperechoic. There is no demonstrated endometrial mass. There is no demonstrated myometrial mass. I.U.D. - The patient does not have an I.U.D. The right ovary is visualized. The right ovary measures 3.5 x 2.6 x 1.8 cm. There are multiple follicles of the right ovary without a dominant cyst. There is no visualized right adnexal mass or complex lesion. There is normal arterial and normal venous vascularity. The left ovary is visualized. The left ovary measures 2.9 x 2.1 x 1.8 cm. There are multiple follicles of the left ovary without a dominant cyst. There is no visualized left adnexal mass or complex lesion. There is normal arterial and normal venous vascularity. There is no fluid in the cul-de-sac. The pre void volume of the bladder was 66 ml. The urinary bladder appears grossly normal. Polycystic ovary disease: No. US/Pelvic (Non ) IMPRESSION: Normal female pelvis. Electronically Signed: Thaddeus Hull DO at 23:03 EDT ,
--- NOTE | 2022-05-30 18:46 | US_ITS ---
STUDY: ULTRASOUND OF THE FEMALE PELVIS - COMPLETE REASON FOR EXAM: Female, 26 years old. Abnormal uterine bleeding. LMP: Unknown. TECHNIQUE: Transabdominal and Transvaginal TECHNICAL QUALITY: Adequate. COMPARISON: None. FINDINGS: The uterus is anteverted and is in a midline position. The uterus measures 8.6 x 6.4 x 4.1 cm. There is a Nabothian cyst of the cervix. The endometrium measures 5 mm in thickness, and is hyperechoic. There is no demonstrated endometrial mass. There is no demonstrated myometrial mass. I.U.D. - The patient does not have an I.U.D. The right ovary is visualized. The right ovary measures 3.5 x 2.6 x 1.8 cm. There are multiple follicles of the right ovary without a dominant cyst. There is no visualized right adnexal mass or complex lesion. There is normal arterial and normal venous vascularity. The left ovary is visualized. The left ovary measures 2.9 x 2.1 x 1.8 cm. There are multiple follicles of the left ovary without a dominant cyst. There is no visualized left adnexal mass or complex lesion. There is normal arterial and normal venous vascularity. There is no fluid in the cul-de-sac. The pre void volume of the bladder was 66 ml. The urinary bladder appears grossly normal. Polycystic ovary disease: No. US/Transvaginal Non- IMPRESSION: Normal female pelvis. Electronically Signed: Thaddeus Hull DO at 23:03 EDT ,
== END | disposition home or self-care (01) ==
LOC: US 18:46
PROVIDERS: PCP Family Medicine; Visit Provider Nurse Practitioner Women's Health
DX: N93.9 Abnormal uterine and vaginal bleeding, unspecified (principal)
CPT/HCPCS: 76830; 76856

== ENCOUNTER → 2022-09-21 | Outpatient (CLI) | payer MEDICAID, SELFPAY ==
--- NOTE | 2022-09-21 | EMB_PTH ---
PATIENT: LETY LOYA LOC: [facility] U#:[id number] AGE/SX: 27/F ROOM: RE09/21/[address]: Dr. Lakesha Alvarez MD : 1995 BED: DIS: 09/21/2022 SPEC #: [id number] RECD: 09/21/22 09:03 STATUS: CYNTHIA REJohn #: [id number] JEAN MARIE: 09/21/22 00:[address]: Lakesha Alvarez DEPT: SURGICAL PATHOLOGY RECD BY: Jessica Varghese ENTERED: 09/26/22 09:04 SP TYPE: ENDOM BX/C HARVINDER DR: Dr. Mariola Wilson DO Tissues: Endometrium, NOS Procedures: Surgery Specimen Level IV HEADER OPERATION: Endometrial biopsy PRE-OP DIAGNOSIS: Abnormal uterine bleeding TISSUE SUBMITTED: Endometrial biopsy MICROSCOPIC DIAGNOSIS Endometrial biopsy: Secretory endometrium. JASVIR:severino 09/27/2022 MICROSCOPIC DESCRIPTION Slides are reviewed. GROSS DESCRIPTION Received in fixative is one container labeled with the patient's name and designated endometrial biopsy. The specimen consists of multiple irregular fragments of meza-pink soft tissue that in aggregate measure 3 x 2.5 x 0.3 cm. The specimen is totally submitted in one cassette. / SJ:severino 09/26/2022 TC:4 CPT: 63313
== END | disposition home or self-care (01) ==
PROVIDERS: PCP Family Medicine; Visit Provider Obstetrics & Gynecology
DX: N93.9 Abnormal uterine and vaginal bleeding, unspecified (principal)
CPT/HCPCS: 88305

== ENCOUNTER → 2022-11-02 | Outpatient (CLI) | payer MEDICAID, SELFPAY ==
[2022-11-02 16:04] LABS: Absolute Lymphocyte Count 2.23 X10^3/uL (0.83-4.51); Absolute Neutrophil Count 6.4 X10^3/uL (2.0-7.7); Basophil# 0.04 X10^3/uL; Basophil% 0.4 % (0-1); Eosinophil# 0.11 X10^3/uL; Eosinophils% 1.2 % (0-5); Hematocrit 40.8 % (37-47); Hemoglobin 13.1 g/dL (12.0-15.0); Lymphocyte # 2.23 X10^3/ul (0.83-4.51); Lymphocyte % 23.9 % (19-41); Mean Corp Hgb Conc 32.1 g/dL (32-36); Mean Corpuscular Hgb 28.4 pg (27.0-32.0); Mean Corpuscular Volume 88.5 fL (81-99); Mean Platelet Vol. 10.4 fl (6.2-12.0); Monocyte% 5.4 % (0-10); NRBC Flagged by Analyzer 0 % (0-5); Neutrophil # 6.43 X10^3/uL (2.7-7.7); Neutrophil % 68.8 % (47-70); Platelet Count 296 K/mm3 (150-450); RBC Distribution Width CV 11.9 % (11.6-14.6); RBC Distribution Width SD 38.2 fl (35.1-43.9); Red Blood Count 4.61 M/mm3 (4.2-5.4); White Blood Count 9.3 K/mm3 (4.4-11.0)
[2022-11-02 16:20] LABS: Magnesium 2.3 mg/dL (1.6-2.6)
== END | disposition home or self-care (01) ==
LOC: LAB 15:17
PROVIDERS: Anesthesiology; PCP Family Medicine; Visit Provider Obstetrics & Gynecology
DX: Z01.818 Encounter for other preprocedural examination (principal)
CPT/HCPCS: 36415; 83735; 85025; 86850; 86900; 86901

== ENCOUNTER 2022-11-06 15:32 | Observation (INO) | payer MEDICAID, SELFPAY ==
--- NOTE | 2022-11-05 17:48 | PCM.HP.BLA ---
Documented by User: Dr. Lakesha Alvarez MD 11/05/22 17:48 History and Physical Intake Vital Signs ? 10/25/2312:07 10/25/2312:08 Height 1.68 m 1.68 m Weight: 97.976 kg ? BMI 34.8 ? BP 100/70 ? Intake Visit Reasons:?TVH? 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 Lakesha Alvarez MD) Hx of elbow surgery Status post bilateral salpingectomy Social History? Smoking Status:? Never smoker alcohol intake:? former substance use type:? does not use caffeine:? Yes what type of physical activity do you participate in:? none seatbelt use:? always do you feel safe at home:? Yes additional social history:? - [employer] [facility]? needs to sign medicaid form Details: LETY LOYA is a 27 year old who presents for preop appointment? has AUB failed lysteda.? 8 cm uterus nl emb. Female Reproductive History Menopausal Symptoms: No hot flashes, No night sweats, No difficulty concentrating and No change in libido History ? ? ? 4 ? Elective abortions ? Hx Para ? ? ? 4 ? Spontaneous abortions ? Hx # Term Pregnancies ? Ectopic pregnancies ? Hx # Pregnancies ? Multiple births ? # of living children ? ? ? 4 Past Pregnancies Del. Date Name GA/Weeks Outcome Route Bth Weight Infant Gen Labor Lgth Anesthesia Del Locatn Provider FOB 10/15/11 Layo 41 live - full term 8lbs 9oz ? ? epidural [facility] Dr. Apolinar Arguelles 07/21/14 Jacques 39 live - full term 7lbs 6oz Male ? epidural [facility] Dr. Kael De La Paz 10/04/17 Shekhar 41 live - full term 7lbs 6oz Male ? epidural [facility] Dr. Apolinar Raymond 01/14/20 Waleskaoivesta 41 live - full term ? Female ? epidural [facility] YARITZA ? Delivery Date: 10/15/11? Last Updated by: Audrey Valentin ? ? ? No issues during or delivery Delivery Date: 07/21/14? Last Updated by: Audrey Valentin ? ? ? No issues during or delivery. 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 Delivery Date: 10/04/17? Last Updated by: Audrey Valentin ? ? ? No issues during or delivery. ROS Const Constitutional: Denies fatigue, night sweats, weight gain or weight loss ENT ENT: Reports system reviewed and no additional complaints, except as documented Cardio Card: Denies chest pain Resp Resp: Denies cough or dyspnea GI GI: Reports as per HPI; Denies constipation, nausea or vomiting : Reports as per HPI; Denies hot flashes, nipple discharge, vaginal discharge, vaginal dryness, vaginal odor or vaginal pruritus Musc Musc: Denies arthralgias, back pain or muscle weakness Skin Skin/Breast: Denies alopecia, change in hair, dry skin, breast mass, breast pain, breast skin changes or nipple discharge Neuro Neuro: Reports system reviewed and no additional complaints, except as documented Psych Psych: Reports system reviewed and no additional complaints, except as documented; Denies change in libido or difficulty concentrating Endo Endo: Denies cold intolerance, excessive sweating, heat intolerance or polydipsia Matthew/Lymph Hematologic/Lymphatic: Denies easy bleeding, Denies easy bruising and Denies lymphadenopathy Exam Const General: cooperative, healthy appearing, comfortable, no acute distress and well developed Orientation: alert [facility] Head: normal to inspection and normocephalic Ears: hearing grossly normal bilaterally and external ears normal Nose: external nose normal and nares normal Face and sinus: normal facial exam Neck Neck: normal visual inspection and no lymphadenopathy Thyroid: thyroid normal Chest Chest palpation & inspection: normal inspection of the chest Resp Effort & Inspection: normal respiratory effort Auscultation: clear to auscultation bilaterally Cardio Rate: regular rate Rhythm: regular rhythm Heart Sounds: S1 normal and S2 normal GI Inspection: normal to inspection and non-distended Palpation: soft and no hepatosplenomegaly General: bladder normal to palpation External Female Exam: normal external appearance and normal appearance of the urethra Urethra: normal appearance of the urethra, normal palpation and no discharge Speculum Exam - Vagina: normal appearance of the vagina and normal vaginal discharge Speculum Exam - Cervix: normal appearance of the cervix and nontender Bimanual Exam- Vagina & Uterus: normal bimanual exam, uterine size normal, bladder normal to palpation, uterine shape normal, No tender, uterine mobility normal, consistency normal, normal palpation and non-tender Bimanual Exam- Adnexa, other: normal adnexae, adnexae mobile, no masses and normal Pelvic Support: normal Musc Other: gross motor intact no deficits, full bilateral strength Skin General: no rashes or lesions noted Neuro General: patient alert, patient awake, moves all extremities and no focal motor deficits Motor: muscle tone normal throughout Extrem General: normal to inspection and no pedal edema Psych Appearance: grossly normal Mental Status: mental status grossly normal Affect: normal affect Speech and Movement: speech and movement normal Coding Level of Care Code No Charge Diagnoses Menorrhagia with regular cycle? N92.0 Assessment and Plan Assessment and Plan (1) Menorrhagia with regular cycle: ?Status:?Acute ?Comment: lysteda, 05/28/22 Pelvic US. 05/31/22 nl US. failed iud and ocp in past. plan TVH, 10/03 nl EMB. Plan After discussing the patient's diagnosis and treatment plan options, patient wishes to proceed with surgical management.? I have discussed with the patient the risks, benefits, and alternatives of the procedure which include but are not limited to risks of anesthesia, bleeding, infection, possible damage to bowel, bladder, or surrounding vasculature which could lead to additional surgery to evaluate any complications.? Patient agrees to procedure and wishes to proceed.? ACOG/uptodate references given for additional information regarding procedure.? UPDATE- I have seen the patient and performed any clinically relevant updates to the history and physical exam. Lakesha Alvarez MD Documented by User: Dr. India Major, DO 11/06/22 07:23 History and Physical Date of Admission: 11/06/22 Intake Vital Signs ? 10/25/2312:07 10/25/2312:08 Height 1.68 m 1.68 m Weight: 97.976 kg ? BMI 34.8 ? BP 100/70 ? Intake Visit Reasons:?TVH? 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 Lakesha Alvarez MD) Hx of elbow surgery Status post bilateral salpingectomy Social History? Smoking Status:? Never smoker alcohol intake:? former substance use type:? does not use caffeine:? Yes what type of physical activity do you participate in:? none seatbelt use:? always do you feel safe at home:? Yes additional social history:? - [employer] [facility]? needs to sign medicaid form Details: LETY LOYA is a 27 year old who presents for preop appointment? has AUB failed lysteda.? 8 cm uterus nl emb. Female Reproductive History Menopausal Symptoms: No hot flashes, No night sweats, No difficulty concentrating and No change in libido History ? ? ? 4 ? Elective abortions ? Hx Para ? ? ? 4 ? Spontaneous abortions ? Hx # Term Pregnancies ? Ectopic pregnancies ? Hx # Pregnancies ? Multiple births ? # of living children ? ? ? 4 Past Pregnancies Del. Date Name GA/Weeks Outcome Route Bth Weight Gen Labor Lgth Anesthesia Del Locatn Provider FOB 10/15/11 Layo 41 live - full term 8lbs 9oz ? ? epidural [facility] Dr. Apolinar Arguelles 07/21/14 Jacques 39 live - full term 7lbs 6oz Male ? epidural [facility] Dr. Kael De La Paz 10/04/17 Shekhar 41 live - full term 7lbs 6oz Male ? epidural [facility] Dr. Apolinar Raymond 01/14/20 Zhoie 41 live - full term ? Female ? epidural [facility] YARITZA ? Delivery Date: 10/15/11? Last Updated by: Audrey Valentin ? ? ? No issues during or delivery Delivery Date: 07/21/14? Last Updated by: Audrey Valentin ? ? ? No issues during or delivery. 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 Delivery Date: 10/04/17? Last Updated by: Audrey Valentin ? ? ? No issues during or delivery. ROS Const Constitutional: Denies fatigue, night sweats, weight gain or weight loss ENT ENT: Reports system reviewed and no additional complaints, except as documented Cardio Card: Denies chest pain Resp Resp: Denies cough or dyspnea GI GI: Reports as per HPI; Denies constipation, nausea or vomiting : Reports as per HPI; Denies hot flashes, nipple discharge, vaginal discharge, vaginal dryness, vaginal odor or vaginal pruritus Musc Musc: Denies arthralgias, back pain or muscle weakness Skin Skin/Breast: Denies alopecia, change in hair, dry skin, breast mass, breast pain, breast skin changes or nipple discharge Neuro Neuro: Reports system reviewed and no additional complaints, except as documented Psych Psych: Reports system reviewed and no additional complaints, except as documented; Denies change in libido or difficulty concentrating Endo Endo: Denies cold intolerance, excessive sweating, heat intolerance or polydipsia Matthew/Lymph Hematologic/Lymphatic: Denies easy bleeding, Denies easy bruising and Denies lymphadenopathy Exam Const General: cooperative, healthy appearing, comfortable, no acute distress and well developed Orientation: alert [facility] Head: normal to inspection and normocephalic Ears: hearing grossly normal bilaterally and external ears normal Nose: external nose normal and nares normal Face and sinus: normal facial exam Neck Neck: normal visual inspection and no lymphadenopathy Thyroid: thyroid normal Chest Chest palpation & inspection: normal inspection of the chest Resp Effort & Inspection: normal respiratory effort Auscultation: clear to auscultation bilaterally Cardio Rate: regular rate Rhythm: regular rhythm Heart Sounds: S1 normal and S2 normal GI Inspection: normal to inspection and non-distended Palpation: soft and no hepatosplenomegaly General: bladder normal to palpation External Female Exam: normal external appearance and normal appearance of the urethra Urethra: normal appearance of the urethra, normal palpation and no discharge Speculum Exam - Vagina: normal appearance of the vagina and normal vaginal discharge Speculum Exam - Cervix: normal appearance of the cervix and nontender Bimanual Exam- Vagina & Uterus: normal bimanual exam, uterine size normal, bladder normal to palpation, uterine shape normal, No tender, uterine mobility normal, consistency normal, normal palpation and non-tender Bimanual Exam- Adnexa, other: normal adnexae, adnexae mobile, no masses and normal Pelvic Support: normal Musc Other: gross motor intact no deficits, full bilateral strength Skin General: no rashes or lesions noted Neuro General: patient alert, patient awake, moves all extremities and no focal motor deficits Motor: muscle tone normal throughout Extrem General: normal to inspection and no pedal edema Psych Appearance: grossly normal Mental Status: mental status grossly normal Affect: normal affect Speech and Movement: speech and movement normal Coding Level of Care Code No Charge Diagnoses Menorrhagia with regular cycle? N92.0 Assessment and Plan Assessment and Plan (1) Menorrhagia with regular cycle: ?Status:?Acute ?Comment: lysteda, 05/28/22 Pelvic US. 05/31/22 nl US. failed iud and ocp in past. plan TVH, 10/03 nl EMB. Plan After discussing the patient's diagnosis and treatment plan options, patient wishes to proceed with surgical management.? I have discussed with the patient the risks, benefits, and alternatives of the procedure which include but are not limited to risks of anesthesia, bleeding, infection, possible damage to bowel, bladder, or surrounding vasculature which could lead to additional surgery to evaluate any complications.? Patient agrees to procedure and wishes to proceed.? ACOG/uptodate references given for additional information regarding procedure.? UPDATE- I have seen the patient and performed any clinically relevant updates to the history and physical exam. India Major, DO
[2022-11-06] VITALS (17 sets, daily range): BP systolic 88–117; BP diastolic 46–71; PULSE 48–67; RESP 14–18; TEMP 36.1–37.4; O2SAT 94–100; BMI 33.9
--- NOTE | 2022-11-06 | HYST_PTH ---
PATIENT: LETY LOYA LOC: [facility] U#:[id number] AGE/SX: 27/F ROOM: [facility]312 RE11/06/[address]: Dr. India Major DO : 1995 BED: 1 DIS: 11/07/2022 SPEC #: [id number] RECD: 11/06/22 11:27 STATUS: CYNTHIA EUBANKSJohn #: [id number] JEAN MARIE: 11/06/22 00:[address]: India Major DEPT: SURGICAL PATHOLOGY RECD BY: Reuben Carranza ENTERED: 11/06/22 11:27 SP TYPE: HYSTERECT OTHR DR: DO Dr. Lakesha Lozada MD Tissues: Uterus, NOS Procedures: Surgery Specimen Level II Surgery Specimen Level V HEADER OPERATION: ERAS, vaginal hysterectomy PRE-OP DIAGNOSIS: Menorrhagia TISSUE SUBMITTED: Uterus, cervix MICROSCOPIC DIAGNOSIS Uterus, hysterectomy: Cervix ? squamous metaplasia and nabothian cyst. Endometrium ? proliferative endometrium. Myometrium ? Adenomyosis. Vaginal tissue, anterior/posterior repair: No pathologic change. AM:severino 11/07/2022 MICROSCOPIC DESCRIPTION Slides are reviewed. GROSS DESCRIPTION Received in fixative is one container labeled with the patient's name and designated uterus, cervix. The specimen consists of a hysterectomy specimen consisting of uterus with cervix and portion of vaginal mucosal tissue. The uterus with cervix weighs 103 gm and measures 10 x 6 x 4 cm. The portion of the vaginal mucosa present shows focal area of ulceration measuring 3 x 2 x 0.5 cm. The serosal surface is meza, glistening and unremarkable. The ectocervical mucosa is unremarkable. The external os is oval in contour. The endocervical canal measures 3.5 cm in length and the endocervical mucosa is meza, glistening and unremarkable. The triangular endometrial cavity measures 4.5 cm in length and up to 3 cm in width. The endometrium is meza, glistening without any mass lesion and measures 0.1 cm in thickness. Sections of the uterine wall do not reveal any mass lesion and measures 2 cm in thickness. Sections of the vaginal mucosa do not reveal any mass lesion. Customer Account Representative sections are submitted in seven cassettes as follows: 1 - anterior cervix, 2 - posterior cervix, 3 & 4 - anterior uterine wall, 5 & 6 - posterior uterine wall, 7 - vaginal mucosal tissue. / SJ:severino 11/06/2022 TC:5 CPT: 03958, 97634
[2022-11-06] MEDS: Lactated Ringers 1,000 ML 40 ML IV (05:45)
[2022-11-06 05:55] LABS: Internal QC Validated? YES +Cl - CLEAR BKGD; Pregnancy, Urine Negative Negative
[2022-11-06] MEDS: Phenazopyridine 95 MG Tablet 190 MG PO (06:04)
[2022-11-06] MEDS: Scopolamine 1mg/72hr Patch 1 PATCH TD (06:05)
[2022-11-06] MEDS: Acetaminophen 500 MG Tablet 1000 MG PO ×2 (06:05→17:50)
[2022-11-06] MEDS: Celecoxib 200 MG Capsule 400 MG PO (06:05)
[2022-11-06] MEDS: Gabapentin 600 MG Tablet PO (06:06)
[2022-11-06] MEDS: Enoxaparin 40 MG/0.4 ML Syringe SC (06:06)
[2022-11-06] MEDS: dexAMETHasone 10 MG/ML Vial 8 MG IV (06:06)
[2022-11-06 06:45] LABS: Bedside Glucose 95 mg/dL (74-106)
--- NOTE | 2022-11-06 07:39 | DCINST_ITS ---
Discharge Instructions Diet Discharge Diet: No restrictions Activity Discharge Activity: Return to Normal Activity, May Not Drive (while taking narcotic pain medications.) and May Shower May resume sexual activity in: 6-8 weeks Dressing / Incision Call your doctor if your incision/area has: Continuous Slow Oozing, Sudden Increased Bleeding, Increased Pain/ Swelling, Increased Redness and Foul Smelling Discharge Call your doctor if you observe: Fever of 101 or Higher, Inability to urinate, Inability to have a bowel movement and Using more than 1 pad per hour Follow Up Care Please Follow Up With: India Major DO Test Results: Test results from this visit will be discussed in further detail at your follow- up appointment, if applicable. Discharge Plan Admission Primary Reason for Your Visit: hysterectomy Attending Provider: India Major Primary Care Provider: Mariola Wilson Consulting Providers: Lakesha Alvarez Discharge Orders/Prescriptions Prescriptions: New oxycodone-acetaminophen [Percocet] 5-325 mg tablet 1 tab PO Q4H PRN (Reason: pain) 7 Days Qty: 30 0RF Rx Instructions: 1-2 tabs q 4 hrs as needed for pain naproxen 500 mg tablet 500 mg PO BID PRN (Reason: pain) Qty: 30 0RF Other Ambulatory Orders: ,Urine (Routine) Timeframe: 20221106 Facility: [facility] - Location: Laboratory Ordered By: Dr. Lakesha Alvarez Referrals / Follow Up: Mariola Wilson DO [Primary Care Provider] - Disposition Disposition (needs filled in before D/C Order can be placed): Home, Self Care
[2022-11-06] MEDS: Cefazolin 2 GM in 0.9% Normal Saline 100 ML IV (07:40)
[2022-11-06] MEDS: Vasopressin 20 UNITS/ML Vial (07:50)
--- NOTE | 2022-11-06 09:27 | OP.PCM_ITS ---
Operative Report Date of Procedure: 11/06/22 Preoperative diagnosis: menorrhagia, failed conservative therapy Postoerative diagnosis: menorrhagia, failed conservative therapy Procedure: Total vaginal hysterectomy, cystoscopy Surgeon: Dr. India Major DO Credit Review Analyst: TIFFANY Capps Anesthesia: GET Urine output: 500cc blood loss: 300cc fluids: 1500cc crystalloid Complications: none Specimens removed: cervix and uterus Preprocedure note: This is a 27 y/o (all vaginal deliveries) who has previously undergone a tubal ligation. She suffers with menorrhagia and has tried ocps and GNRH agonists without success., After discussing the patient's diagnosis and treatment plan options, patient wishes to proceed with surgical management. I have discussed with the patient the risks, benefits, and alternatives of the procedure which include but are not limited to risks of anesthesia, bleeding, infection, possible damage to bowel, bladder, or surrounding vasculature which could lead to additional surgery to evaluate any complications. Patient agrees to procedure and wishes to proceed. Details: Patient was taken to the operating room and was placed under general anesthesia was prepped and draped in normal sterile fashion in the dorsal lithotomy position. Preoperative antibiotics and SCDs and Lee catheter was placed inside the bladder. Weighted speculum was placed in the vagina and the anterior and posterior lip of the cervix was grasped with 2 Wesley clamps and circumferentially injected with dilute vasopressin. A circumferential incision was made with a scalpel and the posterior cul-de-sac was entered into sharply and a longneck speculum was placed. The anterior cul-de-sac was also dissected down and entered into sharply and the uterosacral ligaments were clamped cut and suture ligated bilaterally followed by the cardinal ligaments which were Clamped cut and suture ligated bilaterally with 0 Vicryl The uterus serially descended and progressive bites were taken bilaterally up to the level of the utero- ovarian ligament bilaterally which was clamped transected and double ligated with 0 Vicryl suture and 0 Vicryl free tie. Bilateral ovaries were well visualized and noted be within normal limits and the bilateral fallopian tubes were transected across the base with a Sangita clamp and removed and sutured with 0 Vicryl suture. Excellent hemostasis was noted. Posterior peritoneum was reapproximated with 2-0 Vicryl and a modified Segura stitch was placed through the posterior vaginal cuff and bilateral uterosacral ligaments across the posterior cul-de-sac skimming along to provide apical support to the vagina. The anterior peritoneal edge was noted to be bleeding. This was suture ligated. The vagina was closed with [id number] 0 Vicryl pop offs including the posterior and anterior peritoneum in the reapproximation. Excellent hemostasis was noted. All instruments removed from the vagina clear urine was noted at the end of the procedure. Next, a cystoscopy was performed using a 70 degree cystoscope. Intraoperative images were noted and positive ureteral jets were seen flowing from both ureters. No suture material was present in the bladder. The cystoscope was removed and the bladder was drained again using a lee cathter. The patient was awoken and taken recovery in stable condition. Procedures Urinary/Genital [id number]: 25870 Cystoscopy
[2022-11-06] MEDS: Ondansetron 4 MG/2 ML Vial IV (09:47)
[2022-11-06 10:06] LABS: Bedside Glucose 114 mg/dL (74-106)
[2022-11-06] MEDS: Lactated Ringers 1,000 ML 100 ML IV ×2 (10:40→19:56)
[2022-11-06] MEDS: HYDROcodone Bitartrate/Apap 5/325 Tablet PO (12:29)
[2022-11-06] MEDS: 0.9% Saline Lock 10 ML Syringe IV (17:50)
[2022-11-06] MEDS: Ketorolac 30 MG/ML Syringe IV ×2 (17:50→23:04)
[2022-11-06] MEDS: Docusate Sodium 100 MG Capsule PO (19:56)
[2022-11-06] MEDS: Metoclopramide 10 MG/2 ML Vial 5 MG IV (20:07)
[2022-11-07] MEDS: Acetaminophen 500 MG Tablet 1000 MG PO (01:09)
[2022-11-07] MEDS: oxyCODONE 5 MG Tablet PO (01:10)
[2022-11-07 02:34] VITALS: BP 99/59; PULSE 54; RESP 14; TEMP 37.3; O2SAT 96
[2022-11-07] MEDS: Lactated Ringers 1,000 ML 100 ML IV (05:28)
[2022-11-07] MEDS: Metoclopramide 10 MG/2 ML Vial 5 MG IV (05:29)
[2022-11-07] MEDS: Ketorolac 30 MG/ML Syringe IV (05:30)
--- NOTE | 2022-11-07 05:44 | NURSING ---
pt walked to the end of the hallway and back. tolerated fair.
[2022-11-07 06:20] LABS: Hematocrit 32.7 % (37-47); Hemoglobin 10.7 g/dL (12.0-15.0); Mean Corp Hgb Conc 32.7 g/dL (32-36); Mean Corpuscular Hgb 28.4 pg (27.0-32.0); Mean Corpuscular Volume 86.7 fL (81-99); Mean Platelet Vol. 10.4 fl (6.2-12.0); Platelet Count 249 K/mm3 (150-450); RBC Distribution Width SD 38.2 fl (35.1-43.9); Red Blood Count 3.77 M/mm3 (4.2-5.4); White Blood Count 10.5 K/mm3 (4.4-11.0)
[2022-11-07 06:47] VITALS: O2SAT 99
--- NOTE | 2022-11-07 07:13 | PCM.PN.OB ---
Subjective Subjective Patient is laying in bed comfortably without complaints. She states that she slept on an off during the night. vaginal bleeding is scant and pain is minimal. Objective Data Objective Data Vital Signs: Vital Signs Temp Pulse Resp BP Pulse Ox O2 Del Method O2 Flow Rate 99.2 F H 54 L 14 99/59 L 99 Room Air 4 11/07/22 02:34 11/07/22 02:34 11/07/22 02:34 11/07/22 02:34 11/07/22 06:47 11/07/22 06:47 11/06/22 10:49 Oxygen Flow Rate (L/min) 4 Oxygen Delivery Method Room Air Weight: 210 lb Body Mass Index (BMI) 33.9 Intake & Output: Intake and Output for Last 24 Hours 11/05/22 11/06/22 11/07/22 23:59 23:59 23:59 Intake Total 3138.67 / 3138.67 953.33 / 953.33 Output Total 570 / 570 500 / 500 Balance 2568.67 / 2568.67 453.33 / 453.33 Lab / Micro Data Result Diagrams: 11/07/22 06:04 Labs: Laboratory Results - last 24 hr 11/06/22 09:44: POC Glucose 114 H 11/07/22 06:04: WBC 10.5, RBC 3.77 L, Hgb 10.7 L, Hct 32.7 L, MCV 86.7, MCH 28.4, MCHC 32.7, RDW Std Deviation 38.2, RDW Coeff of Melyssa 12.0, Plt Count 249, MPV 10.4 ROS Constitutional Constitutional: Reports systems reviewed and no addt'l complaints, except as documented Cardiovascular Cardiovascular: Denies chest pain, dizziness, dyspnea or irregular heart rhythm Respiratory/Chest Respiratory/Chest: Denies cough, pain on inspiration or shortness of breath at rest Gastrointestinal Gastrointestinal: Denies abdominal pain, nausea or vomiting Genitourinary Genitourinary: Denies burning urination Musculoskeletal Musculoskeletal: Denies muscle cramps, muscle spasms or muscle weakness Neurologic Neurologic: Denies confusion, dizziness, headache(s) or lack of coordination Psychiatric Psychiatric: Denies anxiety, behavioral changes or depression Physical Exam Const alert, oriented x3 and no apparent distress HEENT normocephalic Resp normal respiratory effort and normal air movement GI soft to palpation, non-tender and non-distended Rectal Exam: other no CVA tenderness Extremity normal to inspection General Extremity: edema bilateral (trace ) Assessment & Plan (1) Status post hysterectomy: PLAN: Plan patient is s/p TVH and cysto POD 1 1. routine ERAS protocol postop care- increase ambulation, encourage oral intake and oral control of pain. lovenox and scds for dvt prophylaxis, patient stable for discharge to home.
[2022-11-07 08:00] VITALS: PULSE 45
[2022-11-07 08:03] VITALS: BP 105/67; PULSE 45; RESP 18; TEMP 36.5; O2SAT 96
--- NOTE | 2022-11-07 08:09 | NURSING ---
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 Pt states she feels better since the reglan. Pt refused when this RN offered Zofran OT. This RN encouraged pt to keep ambulating in [place] and to sit up in her chair when breakfast comes. Pt ordering breakfast.
[2022-11-07 08:10] VITALS: BP 105/67; PULSE 45; RESP 18; TEMP 36.5; O2SAT 96
--- NOTE | 2022-11-07 10:09 | NURSING ---
Pt Ate two cups of jello and has kept it down. Pt denies nausea. Pt is ready to go home as pt has been waiting in the car for an hour because I called him when Dr. Martin was in and she said I can call my ride and go home. Explained to pt this RN was concerned that she was not keeping anything down so wanted her to have breakfast and wait to see how she would do. Pt understood.
--- NOTE | 2022-11-07 10:43 | PHA.DC.MR ---
Pharmacy Service has performed discharge medication reconciliation for this patient. The patient's discharge medication list was reviewed for discrepancies and discrepancies were resolved. Medication education papers prepared, patient already discharged when counseling was attempted. Home Medications naproxen 500 mg tablet 500 mg PO BID PRN pain #30 tabs 11/06/22 oxycodone-acetaminophen 5 mg-325 mg tablet (Percocet) 1 tab PO Q4H PRN pain 7 days #30 tabs 11/06/22
== END 2022-11-07 10:25 | disposition home or self-care (01) ==
LOC: SDC 15:56 → MS3 16:26
PROVIDERS: Anesthesiology; Obstetrics & Gynecology; Admitting Provider Obstetrics & Gynecology; PCP Family Medicine; Referring Provider Obstetrics & Gynecology; Visit Provider Obstetrics & Gynecology
PROC: (CPT 58260; principal; 2022-11-06 07:10)
DX: N92.0 Excessive and frequent menstruation with regular cycle (principal); N93.9 Abnormal uterine and vaginal bleeding, unspecified; F41.9 Anxiety disorder, unspecified; Z87.891 Personal history of nicotine dependence
CPT/HCPCS: 58260; 00944; J7120 ×2; 36415; 81025; 82962; 85027; 88302; 88307; 94668; 96361; 96374; 96375; 96376; 99221; A4216; G0378; J2405; J3475

== ENCOUNTER → 2022-11-27 | Outpatient (CLI) | payer MEDICAID, SELFPAY | END | disposition home or self-care (01) | LOC: LABSPEC 16:37 | PROVIDERS: PCP Family Medicine; Visit Provider Obstetrics & Gynecology | DX: T81.49XA Infection following a procedure, other surgical site, initial encounter (principal); X58.XXXA Exposure to other specified factors, initial encounter | CPT/HCPCS: 87070; 87075; 87077; 87186; 87205 ==

== ENCOUNTER → 2022-12-07 | Outpatient (CLI) | payer MEDICAID, SELFPAY | END | disposition home or self-care (01) | LOC: LABSPEC 16:45 | PROVIDERS: PCP Family Medicine; Referring Provider Obstetrics & Gynecology; Visit Provider Obstetrics & Gynecology | DX: N89.8 Other specified noninflammatory disorders of vagina (principal) | CPT/HCPCS: 87070; 87205 ==